=== PATIENT | female | born 2000 | race Caucasian/White ===

== ENCOUNTER → 2023-01-27 | Outpatient (CLI) | payer OTHER | LOC: M LAB 14:48 | PROVIDERS: ATTEND Pediatrics | DX: Z33.1 Pregnant state, incidental (principal) ==

== ENCOUNTER → 2023-01-29 | Outpatient (CLI) | payer OTHER | LOC: M LAB 12:01 | PROVIDERS: ATTEND Pediatrics | DX: Z33.1 Pregnant state, incidental (principal) ==

== ENCOUNTER → 2023-03-16 | Outpatient (CLI) | payer OTHER | LOC: M LAB 08:05 | PROVIDERS: ATTEND Pediatrics | DX: Z33.1 Pregnant state, incidental (principal) ==

== ENCOUNTER → 2023-03-18 | Outpatient (CLI) | payer OTHER | LOC: M LAB 08:11 | PROVIDERS: ATTEND Pediatrics | DX: Z33.1 Pregnant state, incidental (principal) ==

== ENCOUNTER → 2023-03-20 | Outpatient (CLI) | payer OTHER | LOC: M LAB 07:41 | PROVIDERS: ATTEND Pediatrics | DX: Z33.1 Pregnant state, incidental (principal) ==

== ENCOUNTER → 2023-03-23 | Outpatient (CLI) | payer OTHER | LOC: M LAB 12:19 | PROVIDERS: ATTEND Pediatrics | DX: Z33.1 Pregnant state, incidental (principal) ==

== ENCOUNTER → 2023-03-25 | Outpatient (CLI) | payer OTHER | LOC: M LAB 16:25 | PROVIDERS: ATTEND Emergency Medicine Pediatric Emergency Medicine | DX: Z33.1 Pregnant state, incidental (principal) ==

== ENCOUNTER → 2023-04-06 | Outpatient (CLI) | payer OTHER | LOC: M LAB 12:20 | PROVIDERS: ATTEND Pediatrics | DX: Z33.1 Pregnant state, incidental (principal) ==

== ENCOUNTER → 2023-04-08 | Outpatient (CLI) | payer OTHER | LOC: M PLALAB 12:18 | PROVIDERS: ATTEND Obstetrics & Gynecology | DX: Z34.91 Encounter for supervision of normal pregnancy, unspecified, first trimester (principal) | CPT/HCPCS: 36415; 84702; 86850; 86900; 86901; G0463 ==

== ENCOUNTER → 2023-04-17 | Outpatient (CLI) | payer OTHER | LOC: M PLALAB 12:06 | PROVIDERS: ATTEND Obstetrics & Gynecology | DX: O03.9 Complete or unspecified spontaneous abortion without complication (principal) ==

== ENCOUNTER → 2023-07-24 | Outpatient (REF) | payer OTHER | LOC: M LAB REF 17:05 | PROVIDERS: ATTEND Pediatrics | DX: J02.9 Acute pharyngitis, unspecified (principal) ==

== ENCOUNTER → 2023-08-19 | Outpatient (CLI) | payer OTHER | LOC: M PLALAB 11:51 | PROVIDERS: ATTEND Obstetrics & Gynecology | DX: Z32.00 Encounter for pregnancy test, result unknown (principal) ==

== ENCOUNTER → 2023-10-30 | Outpatient (CLI) | payer OTHER | LOC: M PLALAB 12:17 | PROVIDERS: ATTEND Pediatrics | DX: Z33.1 Pregnant state, incidental (principal) ==

== ENCOUNTER → 2023-11-02 | Outpatient (CLI) | payer OTHER | LOC: M LAB 15:15 | PROVIDERS: ATTEND Pediatrics | DX: Z33.1 Pregnant state, incidental (principal) ==

== ENCOUNTER → 2023-12-14 | Outpatient (CLI) | payer OTHER ==
[2023-12-14 14:00] LABS: HEMATOCRIT 42.4 % (36.0-47.0); HEMOGLOBIN 13.7 g/dl (12.0-15.5); MEAN CORPUSCULAR HEMOGLOBIN 26.2 pg (27.0-33.0); MEAN CORPUSCULAR HGB CONC 32.3 g/dl (32.0-36.5); MEAN CORPUSCULAR VOLUME 81.1 fl (80.0-96.0); PLATELET COUNT, AUTOMATED 219 10^3/uL (150-450); RED BLOOD COUNT 5.23 10^6/uL (4.00-5.40); WHITE BLOOD COUNT 8.7 10^3/uL (4.0-10.0)
[2023-12-14 14:59] LABS: HIV 1&2 SCREEN NEGATIVE (NEGATIVE)
[2023-12-14 15:06] LABS: HEPATITIS C VIRUS ABY INDEX < 0.02 INDEX (<0.8)
[2023-12-14 15:31] LABS: GC DNA AMPLIFICATION NEGATIVE (NEGATIVE)
== END ==
LOC: M PLALAB 11:11
PROVIDERS: ATTEND Specialist
DX: Z34.81 Encounter for supervision of other normal pregnancy, first trimester (principal)

== ENCOUNTER → 2024-02-08 | Outpatient (CLI) | payer OTHER | LOC: M WHC 14:13 | PROVIDERS: ATTEND Advanced Practice Midwife | DX: Z34.82 Encounter for supervision of other normal pregnancy, second trimester (principal); Z3A.19 19 weeks gestation of pregnancy ==

== ENCOUNTER → 2024-03-21 | Outpatient (CLI) | payer OTHER ==
[2024-03-21 15:05] LABS: HEMATOCRIT 37.1 % (36.0-47.0); MEAN CORPUSCULAR HEMOGLOBIN 27.1 pg (27.0-33.0); MEAN CORPUSCULAR HGB CONC 32.3 g/dl (32.0-36.5); MEAN CORPUSCULAR VOLUME 83.7 fl (80.0-96.0); PLATELET COUNT, AUTOMATED 206 10^3/uL (150-450); RED BLOOD COUNT 4.43 10^6/uL (4.00-5.40); WHITE BLOOD COUNT 10.6 10^3/uL (4.0-10.0)
[2024-03-21 16:41] LABS: GC DNA AMPLIFICATION NEGATIVE (NEGATIVE)
== END ==
LOC: M PLALAB 09:24
PROVIDERS: ATTEND Specialist
DX: Z34.82 Encounter for supervision of other normal pregnancy, second trimester (principal)

== ENCOUNTER → 2024-05-09 | Outpatient (CLI) | payer OTHER ==
[~2024-05-09] MED LIST: ASPI81CH33 PO; LAMI25CH PO; LEXA5TAB13 PO; PRENTAB9 PO
== END ==
LOC: M WHC 08:50
PROVIDERS: ATTEND Advanced Practice Midwife
DX: Z34.03 Encounter for supervision of normal first pregnancy, third trimester (principal); Z3A.32 32 weeks gestation of pregnancy

== ENCOUNTER → 2024-05-20 | Outpatient (CLI) | payer OTHER ==
[2024-05-24 20:26] LABS: ANTI PARVO VIRUS LEVEL IGG 7.2 (<0.9); ANTI PARVO VIRUS LEVEL IgM 0.1 (<0.9)
== END ==
LOC: M PLALAB 12:20
PROVIDERS: ATTEND Pediatrics
DX: Z33.1 Pregnant state, incidental (principal)

== ENCOUNTER 2024-05-21 09:52 | Outpatient (CLI) | payer OTHER ==
[~2024-05-21] VITALS: Ht 167.6 cm; Wt 101.6 kg
[2024-05-21 10:09] VITALS: BP 137/64
[2024-05-21] MEDS ORDERED: PRENTAB9 PO (10:14)
[2024-05-21] MEDS ORDERED: LAMI25CH PO (10:14)
[2024-05-21] MEDS ORDERED: ASPI81CH33 PO (10:15)
[2024-05-21] MEDS ORDERED: LEXA5TAB13 PO (10:15)
== END 2024-05-21 10:50 | disposition home or self-care (01) ==
LOC: M LDO 09:52
PROVIDERS: ATTEND Specialist
DX: O36.8130 Decreased fetal movements, third trimester, not applicable or unspecified (principal); O99.343 Other mental disorders complicating pregnancy, third trimester; O26.23 Pregnancy care for patient with recurrent pregnancy loss, third trimester; F41.8 Other specified anxiety disorders; Z3A.34 34 weeks gestation of pregnancy
CPT/HCPCS: 59025; 76815; G0463

== ENCOUNTER → 2024-05-30 | Outpatient (REF) | payer OTHER | LOC: M SFHCWAGY 12:24 | PROVIDERS: ATTEND Specialist | DX: Z34.83 Encounter for supervision of other normal pregnancy, third trimester (principal) ==

== ENCOUNTER 2024-06-08 20:16 | Outpatient (CLI) | payer OTHER ==
[~2024-06-08] VITALS: Ht 167.6 cm; Wt 103.6 kg
[2024-06-08 20:37] VITALS: BP 124/79
[2024-06-08] MEDS ORDERED: HOME MED LIST COMPLETE! XX SCH (21:45)
== END 2024-06-08 22:00 | disposition home or self-care (01) ==
LOC: M LDO 20:16
PROVIDERS: ATTEND Advanced Practice Midwife
DX: O21.8 Other vomiting complicating pregnancy (principal); O99.343 Other mental disorders complicating pregnancy, third trimester; O26.23 Pregnancy care for patient with recurrent pregnancy loss, third trimester; F41.9 Anxiety disorder, unspecified; F32.A Depression, unspecified; Z3A.36 36 weeks gestation of pregnancy
CPT/HCPCS: 59025; G0463

== ENCOUNTER 2024-06-21 13:49 | Outpatient (CLI) | payer OTHER ==
[~2024-06-21] VITALS: Ht 167.6 cm; Wt 105.0 kg
[2024-06-21 14:08] VITALS: BP 137/86
[2024-06-21] MEDS: CEPHALEXIN 500 MG CAP PO ONE (14:32)
== END 2024-06-21 14:40 | disposition home or self-care (01) ==
LOC: M LDO 13:49
PROVIDERS: ATTEND Specialist
DX: O99.713 Diseases of the skin and subcutaneous tissue complicating pregnancy, third trimester (principal); L03.115 Cellulitis of right lower limb; Z3A.38 38 weeks gestation of pregnancy

== ENCOUNTER → 2024-11-15 | Outpatient (REF) | payer OTHER ==
[~2024-11-15] MED LIST changes: +ACET-683 PO; +CEPH500C PO; +IBUP80TA PO; +LAMI1TAB7 PO; +LEXA1TAB2 PO
[2024-11-17 14:52] LABS: HPV APTIMA Not Detected (Not Detected)
== END ==
LOC: M SFHCWAGY 13:57
PROVIDERS: ATTEND Obstetrics & Gynecology
DX: Z01.419 Encounter for gynecological examination (general) (routine) without abnormal findings (principal)
CPT/HCPCS: 87624; G0123

== ENCOUNTER → 2025-01-20 | Outpatient (REF) | payer OTHER | LOC: M LAB REF 15:06 | PROVIDERS: ATTEND Pediatrics | DX: R19.7 Diarrhea, unspecified (principal) ==